=== PATIENT | female | born 1970 | race Caucasian/White ===

== ENCOUNTER 2017-04-21 12:59 | Emergency (ER) | payer OTHER ==
[~2017-04-21] VITALS: Ht 177.8 cm; Wt 56.7 kg
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
[2017-04-21 14:57] VITALS: BP 120/85
--- NOTE | 2017-04-21 15:00 | NUR ---
Patient discharged to home in stable condition. Written and verbal after care instructions given. Patient verbalizes understanding of instruction. AMBULATORY WITH STEADY GAIT. PROVIDED WITH IMAGES AND CT REPORT.
== END 2017-04-21 15:00 | disposition home or self-care (01) ==
LOC: ER 13:04
DX: S09.90XA Unspecified injury of head, initial encounter (principal); M25.512 Pain in left shoulder; W19.XXXA Unspecified fall, initial encounter; Y93.89 Activity, other specified; Y92.89 Other specified places as the place of occurrence of the external cause; Y99.8 Other external cause status
CPT/HCPCS: 70450-TC; A4606; Z7610